=== PATIENT | female | born 1970 | race Caucasian/White ===

== ENCOUNTER 2017-10-25 23:22 | Emergency (ER) | payer OTHER ==
[2017-10-25 23:27] VITALS: BP 131/89; PULSE 73; TEMP 97.7; BMI 25.8
--- NOTE | 2017-10-25 23:27 | PDOC ---
History of Present Illness - General Chief Complaint: Urinary Problem Stated Complaint: POSS UTI Time Seen by Provider: 10/25/17 23:24 - History of Present Illness Initial Comments: 10/25/17 23:44 This otherwise healthy 47-year-old woman presents with a few hour history of progressive dysuria/urinary frequency and urgency. Patient has history of occasional UTIs(last episode approximately 4 years ago). One previous episode of pyelonephritis in 2007 during which she was hospitalized for 2 days. No current history of nausea/vomiting or fever/chills. She denies back/flank pain. No other complaints; no recent acute illnesses. On no medications Denies ALLERGIES to medications Past History - Past Medical History Allergies/Adverse Reactions: Allergies Allergy/AdvReac Type Severity Reaction Status Date / Time No Known Allergies Allergy Unverified 10/25/17 23:36 Home Medications: Ambulatory Orders Ciprofloxacin [Cipro -] 250 mg PO BID #10 tablet 10/26/17 Phenazopyridine HCl [Pyridium] 200 mg PO TID #6 tablet 10/26/17 Review of Systems - Review of Systems Able to Perform ROS?: Yes Comments:: 12 point review of systems is negative except for what is noted in the history of present illness *Physical Exam - Physical Exam Comments: GENERAL: Adult female, alert and oriented 3, in no acute distress ABDOMEN:.normal bowel sounds mild suprapubic tenderness No guarding or rebound.No masses No distention. EXTREMITIES: Normal range of motion, no edema. No clubbing or cyanosis. No erythema, or tenderness. NEUROLOGICAL: Cranial nerves II through XII grossly intact. Normal speech. No focal neurological deficits. MUSCULOSKELETAL: Back non-tender to palpation, no CVA /flank tenderness SKIN: Warm, Dry, normal turgor, no rashes or lesions noted. Progress Note - Progress Note Progress Note: PGU negative Urinalysis is consistent with acute UTI: Greater than 100 wbc's/greater than 100 RBCs, moderate bacteria present in microscopic analysis. Urine sent for culture and sensitivity. Patient will be started on ciprofloxacin 250 milligrams twice a day for 5 days. First dose given here in the emergency room. Also patient will receive Pyridium 200 mg by mouth now for her dysuria. Prescriptions have been transmitted to patient's pharmacy. Patient should return to the emergency room if she has worsening pain, especially if it radiates to her back/flank area. Also, if she experiences fever or vomiting she should return to the emergency room. She should plan to follow up with her general doctor within the next week *DC/Admit/Observation/Transfer Diagnosis at time of Disposition: UTI (urinary tract infection) Qualifiers: Urinary tract infection type: acute cystitis Hematuria presence: with hematuria Qualified Code(s): N30.01 - Acute cystitis with hematuria - Discharge Dispostion Disposition: HOME Condition at time of disposition: Stable - Prescriptions Prescriptions: Ciprofloxacin [Cipro -] 250 mg PO BID #10 tablet Phenazopyridine HCl [Pyridium] 200 mg PO TID #6 tablet - Referrals - Patient Instructions Printed Discharge Instructions: Urinary Tract Infection Additional Instructions: Drink plenty of fluids Cipro 250 mg twice a day for 5 days Pyridium 200 mg 3 times a day for 2 days We will call you if bacteria is resistant and you need to change antibiotics Return if you have worsening pain/vomiting/fever Follow-up with your general doctor within the next week - Post Discharge Activity
[2017-10-25 23:38] LABS: URINE APPEARANCE Clear; URINE BILIRUBIN Negative (NEGATIVE); URINE GLUCOSE (UA) Negative (NEGATIVE); URINE KETONE Negative (NEGATIVE); URINE NITRITE Negative (NEGATIVE); URINE UROBILINOGEN 0.2 (0.2-1.0)
[2017-10-25 23:42] LABS: HCG,QUALITATIVE URINE NEGATIVE
[2017-10-25 23:43] LABS: URINE BLOOD 3+ (NEGATIVE); URINE COLOR PINK; URINE LEUK ESTERASE 3+ (NEGATIVE); URINE PROTEIN 2+ (NEGATIVE)
[2017-10-25 23:54] LABS: EPI CELLS 2+ /HPF; URINE BACTERIA 3+ /hpf (NEGATIVE); URINE RBC <100 /hpf (0-3); URINE WBC <100 (0-5)
[2017-10-26] MEDS ORDERED: PHENAZOPYRIDINE HCL 100 MG TABLET (FP) PO ONE (00:10)
[2017-10-26] MEDS ORDERED: CIPROFLOXACIN 250 MG TABLET (RESTRICTED TO ID) PO ONE ×2 (00:10→00:12)
[2017-10-26] MEDS ORDERED: PHENAZOPYRIDINE HCL 100 MG TABLET (FP) ONE (00:12)
== END 2017-10-26 00:18 | disposition home or self-care (01) ==
LOC: FER 23:22
DX: N30.01 Acute cystitis with hematuria (principal)
CPT/HCPCS: 81003; 81015; 84703; 87086; 99282-25

== ENCOUNTER 2018-07-23 14:12 | Emergency (ER) | payer OTHER ==
--- NOTE | 2018-07-23 14:25 | PDOC ---
Attending Attestation - Resident Resident Name: MaggiemaureenFarhat - ED Attending Attestation I have performed the following: I have examined & evaluated the patient, The case was reviewed & discussed with the resident, I agree w/resident's findings & plan, Exceptions are as noted - HPI HPI: 07/23/18 14:53 47yo female with R lower abd pain since monday. Pt sent by her PMD for eval of pain. No f/c. No n/v/d. No change in bowel habit. No vaginal discharge or pain. No vaginal bleeding. No urinary complaints. Pt with a rash to the RLQ and redness to her well healed scar concerning for shingles. - Physicial Exam PE: 07/23/18 14:54 Gen: aaox3, nad heart: +s1s2 reg lungs: cta b/l abd: soft, no ttp over mcburneys, R pelvic ttp, erythematous rash to R low back and R lower pelvis, mild redness to R sided of scar. -rash consistent with shingles ext: no c/c/e - Medical Decision Making 07/23/18 14:25 I, Dr. Cristela Painter, DO, attest that this document has been prepared under my direction and personally reviewed by me in its entirety. I further attest, that it accurately reflects all work, treatment, procedures and medical decision -making performed by me. 07/23/18 14:58 a/p: 47yo female with R pelvic pain and a shingles rash -will send ua, ucg -will perform pelvic ultrasound given pain over r ovary -will treat for shingles with valtrex TID x 7 days -low suspicion for appendicitis given shingles rash, no n/v/d. no f/c or anorexia -will monitor and reassess 07/23/18 16:50 ua negative pt pending pelvic ultrasound - if negative stable for dc to home with valtrex for shingles 07/23/18 17:24 bowel gas obscuring ovaries, but not acute pathology. pt feeling better will dc with valtrex
--- NOTE | 2018-07-23 14:36 | PDOC ---
History of Present Illness - General Chief Complaint: Pain Stated Complaint: abd pain rt side Time Seen by Provider: 07/23/18 14:25 - History of Present Illness Initial Comments: The patient is a 47 F w/ a history of breast cancer s/p lumpectomy in 2009 who presents for evaluation of abdominal pain since Monday. The patient describes the pain as sharp/achy, worsening, with radiation towards her back that started today. She reports a history of pyelonephritis in the past; however, this does not feel the same to her. She denies N/V/C/D, dysuria, or blood in her urine or stool. The patient denies recent fevers, KHOURY, changes in vision, chest pain, SOB, or changes in sensation She was seen today in clinic by Dr. Crawford who told her to come to the ED for r /o appy/CT 07/23/18 14:37 Past History - Past Medical History Allergies/Adverse Reactions: Allergies Allergy/AdvReac Type Severity Reaction Status Date / Time No Known Allergies Allergy Verified 07/23/18 14:13 Home Medications: Ambulatory Orders NK [No Known Home Medication] 07/23/18 COPD: No - Suicide/Smoking/Psychosocial Hx Smoking History: Unknown if ever smoked Have you smoked in the past 12 months: No Number of Cigarettes Smoked Daily: 0 Hx Alcohol Use: No Drug/Substance Use Hx: No Substance Use Type: None Review of Systems - Review of Systems Able to Perform ROS?: Yes Comments:: GENERAL/CONSTITUTIONAL: No fever or chills. No weakness HEAD, EYES, EARS, NOSE AND THROAT: No change in vision. No ear pain or discharge. No sore throat CARDIOVASCULAR: No chest pain or shortness of breath RESPIRATORY: No cough, wheezing, or hemoptysis GASTROINTESTINAL: per HPI GENITOURINARY: No dysuria, frequency, or change in urination MUSCULOSKELETAL: No joint or muscle swelling or pain. No neck or back pain SKIN: +R flank rash NEUROLOGIC: No headache, vertigo, loss of consciousness, or change in strength/ sensation ENDOCRINE: No increased thirst. No abnormal weight change HEMATOLOGIC/LYMPHATIC: No anemia, easy bleeding, or history of blood clots ALLERGIC/IMMUNOLOGIC: No hives or skin allergy 07/23/18 14:58 Is the patient limited Uzbek proficient: No *Physical Exam - Vital Signs Vital Signs Temp Pulse Resp BP Pulse Ox 98.4 F 77 18 137/99 96 07/23/18 14:12 07/23/18 14:12 07/23/18 14:12 07/23/18 14:12 07/23/18 14:12 07/23/18 14:40 - Physical Exam Comments: GENERAL: Awake, alert, and fully oriented, in no acute distress HEAD: No signs of trauma, normocephalic, atraumatic EYES: PERRL, EOMI, sclera anicteric, conjunctiva clear ENT: Hearing grossly normal, nares patent, oropharynx clear without exudates. Moist mucosa NECK: Normal ROM, supple, no lymphadenopathy LUNGS: No distress, speaks full sentences, clear to auscultation bilaterally HEART:Regular rate and rhythm, normal S1 and S2, no murmurs appreciated, peripheral pulses normal and equal bilaterally ABDOMEN: Soft, R flank TTP with light tough, TTP to deep palpation over R ovary , normoactive bowel sounds. No guarding, no rebound. EXTREMITIES : Normal inspection, Normal range of motion, no edema. No clubbing or cyanosis NEUROLOGICAL: Cranial nerves II through XII grossly intact. Normal speech, normal gait, no focal sensorimotor deficits SKIN: vesicular lesion seen on R flank, back, and increased erythema on R side of C/S scar 07/23/18 15:00 Medical Decision Making - Medical Decision Making The patient is a 47F who presents for RLQ/pelvic abdominal pain The patient has a rash in a dermatomal distribution along her R flank and towards her suprapubic region UA, UCx, Upreg Valtrex 1g PO once Transvaginal US to evaluate for ovarian pathology 07/23/18 14:53 UA w/o evidence of UTI Pending US read 07/23/18 16:55 Rx for Valtrex 1g PO TID for 7d Plan for D/C home w/ PCP f/u Discharge instructions and return precautions given Plan discussed w/ patient who verbalized understanding and is in agreement Dispo: Home *DC/Admit/Observation/Transfer Diagnosis at time of Disposition: Shingles Qualifiers: Herpes zoster complications: without complications Qualified Code(s): B02.9 - Zoster without complications - Discharge Dispostion Disposition: HOME Condition at time of disposition: Stable Decision to Admit order: No - Referrals - Patient Instructions Printed Discharge Instructions: DI for Shingles Additional Instructions: You were seen today in the Emergency Room for shingles. Please review the handouts provided at discharge. Please follow up with your primary care provider within the next 1-3 days. Return to the Emergency Room if you develop fever, chills, worsening symptoms, or any new/concerning symptoms - Post Discharge Activity
[2018-07-23 14:39] VITALS: BP 137/99; PULSE 77; TEMP 98.4; BMI 32.8
[2018-07-23] MEDS ORDERED: valACYclovir HCL 1000 MG TABLET PO ONE (14:52)
[2018-07-23] MEDS ORDERED: IBUPROFEN 400 MG TABLET (FP) PO ONE ×2 (14:53→15:19)
[2018-07-23] MEDS ORDERED: valACYclovir HCL 500 MG TABLET (FP) ONE (15:20)
[2018-07-23 15:35] LABS: URINE APPEARANCE Clear; URINE BILIRUBIN Negative (NEGATIVE); URINE COLOR Yellow; URINE GLUCOSE (UA) Negative (NEGATIVE); URINE KETONE Negative (NEGATIVE); URINE LEUK ESTERASE Negative (NEGATIVE); URINE NITRITE Negative (NEGATIVE); URINE PROTEIN Negative (NEGATIVE); URINE UROBILINOGEN 0.2 (0.2-1.0)
[2018-07-23 17:34] LABS: URINE WBC 0-2 (0-5)
== END 2018-07-23 17:30 | disposition home or self-care (01) ==
LOC: FER 14:12
DX: B02.9 Zoster without complications (principal); Z85.3 Personal history of malignant neoplasm of breast
CPT/HCPCS: 76830-TC; 76856-TC; 81003; 81015; 84703; 87086; 99283-25